=== PATIENT | female | born 1975 | race Caucasian/White ===

== ENCOUNTER → 2018-02-23 | Outpatient (REF) | payer OTHER | LOC: M SFHCLERA 10:29 | DX: J02.9 Acute pharyngitis, unspecified (principal) ==

== ENCOUNTER → 2019-07-18 | Outpatient (REF) | payer OTHER | LOC: M LAB REF 10:01 | PROVIDERS: ATTEND Physician Assistant | DX: R30.0 Dysuria (principal) ==

== ENCOUNTER → 2023-08-06 | Outpatient (REF) | payer OTHER | LOC: M WUC 17:40 | PROVIDERS: ATTEND Student in an Organized Health Care Education/Training Program | DX: J06.9 Acute upper respiratory infection, unspecified (principal) ==